=== PATIENT | male | born 1970 | race Caucasian/White ===

== ENCOUNTER 2020-01-29 19:56 | Emergency (ER) | payer SELFPAY ==
[~2020-01-29] VITALS: Ht 172.7 cm; Wt 77.1 kg
[2020-01-29 20:00] VITALS: BP 125/88
--- NOTE | 2020-01-29 20:16 | NUR ---
PATIENT CAME TO ER BED 8 C/O THROBBING HEADACHE AND LEFT RIB PAIN FOR 4 DAYS. PATIENT DENIES NAUSEA VOMITING. DENIES TAKING MEDICATION. PATIENT IS AAOX4. NO SOB. BREATHING EVENLY AND UNLABORED ON ROOM AIR.
[2020-01-29] MEDS ORDERED: KETOROLAC TROMETHAMINE INJ 30 MG/ML VIAL IV ONE (20:30)
[2020-01-29] MEDS ORDERED: KETOROLAC TROMETHAMINE INJ 30 MG/ML VIAL IM ONE (20:30)
[2020-01-29] MEDS ORDERED: KETOROLAC TROMETHAMINE INJ 30 MG/ML VIAL ONE (20:31)
== END 2020-01-29 21:15 | disposition home or self-care (01) ==
LOC: ER 19:56
DX: R07.89 Other chest pain (principal); R05 Cough; E11.9 Type 2 diabetes mellitus without complications
CPT/HCPCS: 71100; 96372; 99283; J1885